=== PATIENT | female | born 1940 | race Two or more races ===

== ENCOUNTER 2017-04-23 14:11 | Emergency (ER) | payer SELFPAY ==
[~2017-04-23] VITALS: Ht 149.9 cm; Wt 102.5 kg
[2017-04-23] MEDS ORDERED: VITA1TAB22 PO (14:37)
[2017-04-23] MEDS ORDERED: KETOROLAC TROMETHAMINE 10 MG TABLET PO ONE (18:00)
[2017-04-23 19:28] VITALS: BP 144/84
== END 2017-04-23 19:53 | disposition home or self-care (01) ==
LOC: EMS 14:16
DX: R51 Headache (principal)
CPT/HCPCS: 70450; 99284